=== PATIENT | male | born 1965 | race Caucasian/White ===

== ENCOUNTER 2018-12-07 09:57 | Emergency (ER) | payer MEDICARE ==
[~2018-12-07] VITALS: Ht 182.9 cm; Wt 110.0 kg
[2018-12-07 11:10] LABS: HEMATOCRIT 38.5 % (39.0-50.0); HEMOGLOBIN 13.3 g/dl (14.0-18.0); IMMATURE GRANULOCYTES 0.2 % (0.0-5.0); MEAN CELL VOLUME 82.6 fL CALC (80.0-100.0); MEAN CORPUSCULAR HGB 28.5 pG CALC (26.0-32.0); MEAN CORPUSCULAR HGB CONC 34.5 g/L CALC (32.0-36.0); NEUT# 5.39 thou/uL (1.82-7.42); RED BLOOD COUNT 4.66 mill/uL (4.70-6.10); RED CELL DISTRI WIDTH 12.5 % (11.5-15.5)
[2018-12-07 11:26] LABS: ANION GAP 16 (6-22 (CALC)); BUN 11 mg/dL (9-20); BUN/CREATININE RATIO 15 (12-20 (CALC)); CARBON DIOXIDE 25 mmol/l (22-30); CHLORIDE 95 mmol/l (95-108); CREATININE 0.7 mg/dL (0.7-1.3); GFR > 60 ML/MIN (>=60 (CALC)); GFR FOR AFR.AMER. > 60 ML/MIN (>=60 (CALC)); POTASSIUM 4.3 mmol/l (3.5-5.1); SODIUM 132 mmol/l (137-146)
[2018-12-07] MEDS ORDERED: AMLODIPINE5 MG PO (12:17)
[2018-12-07] MEDS ORDERED: LISINOPRIL10 MG PO (12:17)
[2018-12-07] MEDS ORDERED: LANTUS SOL100 UNIT/M SC (12:18)
[2018-12-07] MEDS ORDERED: GLIMEPIRIDE2 MG PO (12:19)
[2018-12-07] MEDS ORDERED: METFORMIN HCL500 M1 PO (12:19)
[2018-12-07] MEDS ORDERED: TRAZODONE HCL100 MG PO (12:20)
[2018-12-07] MEDS ORDERED: GABAPENTIN600 MG PO (12:20)
[2018-12-07 12:24] VITALS: BP 130/68
[2018-12-07] MEDS ORDERED: PERMETHRIN5 % EX (12:24)
== END 2018-12-07 12:30 | disposition home or self-care (01) ==
LOC: ED 09:57
PROVIDERS: Family Medicine
DX: R42 Dizziness and giddiness (principal); I10 Essential (primary) hypertension; E11.40 Type 2 diabetes mellitus with diabetic neuropathy, unspecified; F17.210 Nicotine dependence, cigarettes, uncomplicated